=== PATIENT | female | born 1980 | race Caucasian/White ===

== ENCOUNTER 2018-02-03 07:18 | Day surgery (SDC) | payer OTHER ==
[~2018-02-03] VITALS: Ht 152.4 cm; Wt 60.8 kg
[2018-02-03 07:47] VITALS: BP 122/53
[2018-02-03 12:47] VITALS: BP 103/73
== END 2018-02-03 10:50 | disposition home or self-care (01) ==
LOC: GI 07:18 → OR 08:30 → GI 08:30
PROVIDERS: Internal Medicine Gastroenterology
PROC: 0DB68ZX Excision of Stomach, Via Natural or Artificial Opening Endoscopic, Diagnostic (ICD-10-PCS; principal; 2018-02-03 08:30)
DX: R10.13 Epigastric pain (principal)
CPT/HCPCS: 43235; J1200; J1610; J2250; J2310; J3010; J3490

== ENCOUNTER 2018-10-06 11:40 | Emergency (ER) | payer OTHER ==
[~2018-10-06] VITALS: Ht 152.4 cm; Wt 59.0 kg
[2018-10-06 12:03] VITALS: Ht 152.4 cm; Wt 59.0 kg
[2018-10-06 14:44] VITALS: BP 110/74
== END 2018-10-06 14:44 | disposition home or self-care (01) ==
LOC: ED 11:40
DX: S16.1XXA Strain of muscle, fascia and tendon at neck level, initial encounter (principal); S39.012A Strain of muscle, fascia and tendon of lower back, initial encounter; Z98.890 Other specified postprocedural states; V49.88XA Car occupant (driver) (passenger) injured in other specified transport accidents, initial encounter; Y93.I9 Activity, other involving external motion; Y92.413 State road as the place of occurrence of the external cause; Y99.8 Other external cause status
CPT/HCPCS: J1885; Q0092